=== PATIENT | female | born 1985 | race Caucasian/White ===

== ENCOUNTER 2018-02-08 20:00 | Inpatient (IN) ==
[2018-02-08] MEDS ORDERED: Ondansetron 4 MG/2 ML VIAL IVP PRN (20:26)
[2018-02-08] MEDS ORDERED: *HR* Nalbuphine 10 MG/ML AMPUL IVP PRN (20:26)
[2018-02-08] MEDS ORDERED: Naloxone 0.4 MG/ML INJ IVP PRN (20:26)
[2018-02-08] MEDS ORDERED: Famotidine 20 MG/2 ML VIAL IVP PRN (20:26)
[2018-02-08] MEDS ORDERED: Ringers Solution, Lactated 1,000 ML IVC SCH (20:30)
--- NOTE | 2018-02-08 20:53 | OB/GYN History & Physical ---
Date of Encounter: 02/09/18 Time of Encounter: 21:10 Assessment and Plan (1) 40 weeks gestation of Current visit: Yes Status: Acute (2) Elective induction of labor planned Current visit: Yes Status: Acute 1. Cervidil for induction this evening. 2. and maternal monitoring as per policy 3. Dr. Murry aware of admission (3) Tobacco abuse Current visit: Yes Status: Acute (4) Marijuana abuse Current visit: Yes Status: Acute (5) History of spontaneous Current visit: Yes Status: Acute History of Present Illness Chief complaint: Induction of labor HPI: Ms. Miller is a 32 year old female () who presents to [facility] labor and delivery for scheduled induction of labor at 40 weeks +1 days gestation. Patient has received care with Dr. Murry. Patient admits to past medical history of spontaneous 12 weeks in 2004 from unknown etiology. Current has been complicated by late arrival to care, as well as marijuana and tobacco use. 1. O+ blood type, Rubella IgG antibody and Varicella-zoster virus IgG antibody positive, GBS negative, all other serologies negative. 2. 3. Patient reports positive movement movement as per usual, she denies vaginal bleeding, discharge, or fluid leakage. Past Med Surg Social Fam HX - Past Medical History Attestation: Yes The following information was validated with the patient. Source: patient, nursing notes reviewed Medical history: no medical history, other Additional medical history: chronic back pain Psychiatric history: no psych history - Past Surgical History Surgical History: no surgical history, other Additional surgical history: WISDOM TEETH,IMPLANON PLACED JANUARY 2015 - Social History Smoking Status: Current every day smoker Packs per day: 1 Smokeless Tobacco Status: No Alcohol use: none Drug use: none - Family History Sister Age: 31 Living Status: Still Living Hx Family Cardiac Disorders: No Hx Family Respiratory Disorders: No Hx Family Cancer: No Hx Family GI Disorders: No Hx Family Genitourinary Disorders: No Hx Family Endocrine Disorder: No Hx Family Musculoskeletal Disorders: No Hx Family Neuromuscular Disorders: No Hx Family Neurologic Disorders: No Hx Family HEENT Disorders: No Hx Family Autoimmune Disorders: No Hx Family Reproductive Disorders: No Hx Family Psychosocial Disorders: No Hx Family Medical Disorders: No Obstetrical History - Pregnancies : 2 Para: 0 Term: 0 : 0 Ab's: 1 Livin - History/Complications History/Complications: Patient has a positive obstetrical history of spontaneous at greater than 20 weeks gestation in 2004 from unknown etiology. Medications and Allergies Ferrous Sulfate 325 mg PO DAILY 02/08/18 [History] Loratadine 10 mg PO DAILY 02/08/18 [History] Omeprazole 20 mg PO DAILY 02/08/18 [History] Formula Tablet 1 tab PO DAILY 02/08/18 [History] 3 Allergy/AdvReac Type Severity Reaction Status Date / Time Amoxicillin Allergy Hives Verified 02/08/18 20:48 aspirin [ASA] Allergy Hives Verified 07/27/15 23:26 Penicillins Allergy Hives Verified 07/27/15 23:13 Review of System OB All systems PM: reviewed and no additional remarkable complaints except as stated - Constitutional Constitutional ROS IM: no chills, no fever(s), no headache(s) - Eyes Eyes: bilateral: blurred vision (Patient admits to intermittent episodes of "lights flashing" in her visual perera. Patient states that these episodes have been mild in nature, less than 1 minute long, and spontaneously resolving.) - Nose, mouth, and throat Nose, mouth and throat: no disequilibrium, no dizziness, no headache(s), no vertigo - Cardiovascular Cardiovascular: leg edema, pedal edema, no chest pain, no dyspnea - Respiratory Respiratory: no dyspnea - Gastrointestinal Gastrointestinal: nausea, vomiting, no hematemesis, no hematochezia, no melena - Genitourinary Genitourinary: no hematuria - Muscloskeletal Musculoskeletal: other (Patient admits to bilateral rib pain which has been ongoing throughout . Patient states the pain is intermittent, and shifting from one side to the other, currently on the right side of her rib cage.) - Neurological Nerological: no abnormal gait, no disequilibrium, no dizziness, no headache(s), no lack of coordination Exam - Vital Signs Vital signs: Initial Vital Signs Temp Pulse Resp BP 98.0 F 94 16 113/74 02/08/18 20:33 02/08/18 20:33 02/08/18 20:33 02/08/18 20:33 - Constitutional Constitutional: well developed, well nourished, no acute distress, average body habitus - HEENT HEENT: EOMI, PERRL, Normocephaly, Mucus Membranes Moist - Lungs Respiratory exam: CTAB - Cardiovascular Cardiovascular exam: RRR, +S1, +S2 - Abdomen Abdomen: Present: bowel sounds normal, gravid, non tender. Absent: guarding noted, hepatomegaly, splenomegaly - Extremities Extremities exam: pedal edema (2+ pitting edema noted in bilateral lower extremities. Patient states this is been ongoing throughout ), warm Results Result Diagrams: 02/08/18 20:28 All other labs normal. - VTE Reasons for not Prescribing Prophylaxis: Treatment not Indicated - Low risk for VTE - Attending Attestation I examined this patient and my medical decision-making was reviewed with the Resident Physician. I agree with the documented findings, disposition and treatment plan as described except to the extent set forth below. Nagi Murry
[2018-02-08 21:07] LABS: Basophils % 0.3 %; Eosinophils # 0.1 K/mcL (0.0-0.6); Eosinophils % 1.4 %; Hematocrit 36.3 % (35.3-44.9); Hemoglobin 12.2 g/dL (11.5-15.4); Immature Granulocytes % 0.7 % (0-4); Lymphocytes % 28.6 %; Mean Corpuscular HGB Conc 33.6 g/dL (31.6-35.5); Mean Corpuscular Volume 89.2 fL (83.0-100.0); Mean Platelet Volume 10.8 fL (9.4-12.4); Monocytes # 0.7 K/mcL (0.0-1.3); Neutrophils # 6.4 K/mcL (1.6-8.9); Platelet Count 277 K/mcL (140-400); Red Blood Count 4.07 M/mcL (3.82-4.97); Red Cell Distribution Width 14.3 % (11.5-14.5)
[2018-02-08 23:48] LABS: Amphetamine Screen,Urine Negative ng/mL (Cutoff=1000); Barbiturate Screen,Urine Negative ng/mL (Cutoff=200); Benzodiazepines Screen,Urine Negative ng/mL (Cutoff=200); Cannabinoid Screen,Urine Positive ng/mL (Cutoff = 50); Cocaine Screen,Urine Negative ng/mL (Cutoff= 300); Opiate Screen,Urine Negative ng/mL (Cutoff=300); Phencyclidine Screen,Urine Negative ng/mL (Cutoff=25)
--- NOTE | 2018-02-09 08:41 | OB Labor Progress Note ---
Date of Encounter: 02/09/18 Time of Encounter: 08:39 Labor Progress Note - Subjective Subjective: Patient's feeling the contractions getting uncomfortable - Cervix Cervix: /-3 cervical removed fully catheter placed 40 mL balloon inflated - Heart Tones Heart Tones: heart tones 140s reactive - [place]: Contractions every 2 minutes - Plan Plan: Continue current care once Dennis catheter has fallen out patient and have an epidural we will artificially rupture it does not ruptured spontaneously plan is to anticipate vaginal delivery
--- NOTE | 2018-02-09 09:59 | Anesthesia Evaluation PreOp ---
Date of Encounter: 02/09/18 Time of Encounter: 09:56 - Past History Planned Operation: DEBBIE Cardiac History: Denies any Significant Hx Pulmonary History: Smoker, Pack/yr (14) HEAVY DUTY CUSTODIAN History: Other (L4/L5 herniated disc with intermittent LE parethesias R>L) Other Medical History: Denies Any Significant HX Anesthesia History: No Prior Anesthetic Complications (never had any procedure requiring GA or NA; denies family h/o GA complications) : Yes Alcohol Use: none Drug use: none (no illicit drug use in 3 years) Medications and Allergies Ferrous Sulfate 325 mg PO DAILY 02/08/18 [History] Loratadine 10 mg PO DAILY 02/08/18 [History] Omeprazole 20 mg PO DAILY 02/08/18 [History] Formula Tablet 1 tab PO DAILY 02/08/18 [History] 3 Allergy/AdvReac Type Severity Reaction Status Date / Time Amoxicillin Allergy Hives Verified 02/08/18 20:48 aspirin [ASA] Allergy Hives Verified 07/27/15 23:26 Penicillins Allergy Hives Verified 07/27/15 23:13 - Meds/Allergy Pre-op Review Medications Reviewed: Yes Allergies Reviewed: Yes Beta Blockers on Current Med List: No Anesthesia Results - Labs 02/08/18 20:28 Anesthesia Exam 98/62, HR 97 O2 Sat Height 1.5 m Weight 74.389 kg Vital Signs Temp Pulse Resp BP 98.0 F 94 16 113/74 02/08/18 20:33 02/08/18 20:33 02/08/18 20:33 02/08/18 20:33 NPO (# of Hours): solids > 8hrs Pain Scale: 10 Pain Scale Used: Numeric (1 - 10) - HEENT Pupil (Motor): Pupils equal Mallampati: I Teeth: Normal Oral Opening: Greater than 3 - HEAVY DUTY CUSTODIAN LOC: Oriented HEAVY DUTY CUSTODIAN Motor: Normal RUE, Normal LUE, Normal RLE, Normal LLE, Normal Face HEAVY DUTY CUSTODIAN Sensory: Normal: RUE, LUE, Face, Deficit: RLE, LLE - Cardiac Rhythm: Regular Murmur: None JVD: No Carotid Bruit: No - Pulmonary Breath Sounds: bilateral Clear Respiratory Effort: Symmetrical Anesthesia Assess/Plan ASA Score: 2 Modified Lei Scale for Level of Consciousness: Cooperative, oriented, and tranquil Anesthetic Plan: Regional Autologous Blood: No Monitoring Plan: Standard Monitors Recovery Plan: Other
[2018-02-09] MEDS ORDERED: *HR* FentaNYL (PF) 100 MCG/2 ML VIAL EP ONE (10:00)
[2018-02-09] MEDS ORDERED: Epidural Premix (fent/bupiv) 110 ML EP SCH (10:00)
[2018-02-09] MEDS ORDERED: Bupivacaine-MPF 0.25% 10 ML VIAL EP ONE (10:00)
[2018-02-09] MEDS ORDERED: Lidocaine -MPF 1% 5 ML AMPUL ONE (10:02)
[2018-02-09] MEDS ORDERED: Bupivacaine-MPF 0.25% 10 ML VIAL ONE (10:02)
[2018-02-09] MEDS ORDERED: *HR* FentaNYL (PF) 100 MCG/2 ML VIAL ONE ×2 (10:02→23:53)
[2018-02-09] MEDS ORDERED: miSOPROStol 25 MCG TABLET PO ONE (10:12)
--- NOTE | 2018-02-09 12:52 | Anesthesia Procedures ---
Date of Encounter: 02/09/18 Time of Encounter: 12:24 Procedures: Anesthesia - Epidural/Spinal Patient ID/Chart reviewed: Yes Patient examined: Yes OB Eval: Gestational age: 40 weeks 1 day OB Eval: : 2 OB Eval: Hx Para: 1 OB Eval: Contractions: Non-stressed pattern Consent Obtained: Yes Supplemental Oxygen: None/Room Air Site Prep: Aseptic Technique, Sterile prep and drape, Povidone-Iodine 1% Patient position: upright Local Anesthetic: Lidocaine 1% Amount of Local Anesthetic used: 3 Touhy Needle Gauge: 18 Touhy Needle Depth (cm): 3 Catheter Depth at Skin (cm): 8 Test Dose (1.5% Lido + Epi): Volume given (mls): 5 Test Dose Result: Negative Loading Dose: 0.25% Marcaine (mls): 5 Loading Dose: Fentanyl (mcg): 100 Loading Dose Administered: Thru Catheter Infusion Med: 0.125% Bupivacaine w/ 2 mcg/ml Fentanyl Catheter Secured in Place: Tegaderm, Tape Interspace Used: L3-L4 Loss of Resistance (SHANNA): Yes Blood: No CSF: No Paresthesia: No Procedure: successful on 1st attempt; patient tolerated procedure well; VSS Vitals + FHT's: please see Angeline ARMANDO's electronic records for VS entry
[2018-02-09] MEDS ORDERED: *HR* Phenylephrine 10 MG/ML VIAL ONE (12:56)
--- NOTE | 2018-02-09 13:11 | OB Labor Progress Note ---
Date of Encounter: 02/09/18 Time of Encounter: 13:07 Labor Progress Note - Subjective Subjective: Patient recently got epidural blood pressure dropped heart tones also dropped into the 60s ephedrine was given blood pressures better in terms back in the normal range. - Cervix Cervix: 4/80/-1 AROM clear fluid noted - Heart Tones Heart Tones: FSM placed FHT's 140's reactive decelerations have resolved - [place]: Contractions every 2-3 minutes - Plan Plan: Continue current care and anticipate vaginal delivery we will augment with Pitocin if needed
[2018-02-09] MEDS ORDERED: Oxytocin 20 units/ LR 1000 mL 20 UNIT/1,000 ML BAG IVC SCH (16:30)
--- NOTE | 2018-02-09 20:02 | OB Labor Progress Note ---
Date of Encounter: 02/09/18 Time of Encounter: 19:40 Labor Progress Note - Subjective Subjective: Patient still very comfortable not feeling her contractions with the epidural - Cervix Cervix: /-1 can still did not disengage the head - Heart Tones Heart Tones: heart tones 140s reactive - [place]: contractions even 2-3 min approx 200 [place] units - Plan Plan: continue current care if she does not make change within the next 2 hours will discuss a section with her
[2018-02-09] MEDS ORDERED: Acetaminophen 325 MG TABLET PO PRN (22:23)
--- NOTE | 2018-02-09 22:31 | OB Labor Progress Note ---
Date of Encounter: 02/09/18 Time of Encounter: 22:24 Labor Progress Note - Subjective Subjective: patient still comfortable - Cervix Cervix: 690/0 bloody show noted - Heart Tones Heart Tones: heart tones 160's reactive - [place]: Contractions every 2 minutes adequate - Plan Plan: We will give patient Tylenol by mouth plan is to anticipate vaginal delivery
[2018-02-09] MEDS ORDERED: Metoclopramide 10 MG/2 ML VIAL IVP ONE (23:40)
[2018-02-09] MEDS ORDERED: Clindamycin 900 MG/50 ML 900 MG/50 ML IV.SOLN IVPB ONE (23:46)
--- NOTE | 2018-02-09 23:48 | OB Labor Progress Note ---
Date of Encounter: 02/09/18 Time of Encounter: 23:47 Labor Progress Note - Subjective Subjective: Patient without complaints - Cervix Cervix: /0 - Heart Tones Heart Tones: Heart tones 170s loss of [id number] variability with variable decelerations noted. - [place]: contractions every 2 min - Plan Plan: Due to minimal cervical change and tachycardia with decelerations was set at this time a section would be called.
--- NOTE | 2018-02-09 23:51 | OB/GYN Procedure Note ---
Section - Preop diagnosis: other (Intrauterine at 40-1/7 weeks, arrest of descent, tachycardia) Post-op diagnosis: same Procedure: primary low transverse Surgeon: Kain Murry Quantitated Blood Loss: 500 Was there an speech assistant present: Yes Movie Machine Operator: Jb Shannon (OMS 3) Anesthesiologist: Rosie Martines Hazardous Waste Technician: Melecio Munoz Anesthesia Type: Epidural section complications: none Disposition: L&D Recovery Room - Infant (s) A Delivery Date: 02/10/18 Delivery Time: 00:24 Presentation: vertex Position: LARA Route of delivery: other (section) Gender: Male Viability: Viable Pounds: 7 Ounces: 0 Gram Weight: 3.18 kg at 1 minute: 8 at 5 minutes: 9 Shoulder Dystocia: not encountered Specimens collected: cord blood Placenta: spontaneous Cord: 3 umbilical vessels - Narrative Narrative: The patient is a 32-year-old 1 para 0 at 40-1/7 weeks who presented for induction of labor secondary to term . She had an unfavorable cervix but being term she was brought in Cervidil was placed which was removed approximately 12 hours later. At this point a Denins catheter was placed 30 mL and was inflated followed with Cytotec. Dennis catheter did fall out she was artificially ruptured when she was 4 cm clear fluid noted. Patient did have episodes of bradycardia secondary to her epidural did receive 2 doses of ephedrine 10 negative blood pressure back up and tones returned to normal patient did have episodes of loss of hivz-wp-hanc variability but remained stable patient arrested at approximately 4 cm from approximate 6 hours with some positional change and getting these contractions and a more regular patent she did change to 6 cm however heart tones went into the 170s and 80s with loss of uuoy-[id number] variability she started to run a low-grade temperature tolerable no was given the tones did not return to baseline after another hour and a half patient remained the same at 6 cm and tones continues to remain in the 170s 180s [place] this time a section would be call. Procedure: Patient was taken the operating room her epidural anesthesia was found adequate. She was placed in the dorsal supine position with a tilt prepped and draped in usual fashion. Timeout was then obtained. A Pfannenstiel incision was made with scalpel carried down through the underlying tissue to the fascia was identified. Fascia was nicked in midline extended laterally with Strong scissors. The superior and inferior edges of the fascia grasped tented up and dissected off the rectus muscles. These were in the midline parietal peritoneum was identified tented up and entered sharply. This was extended superiorly and inferiorly with Metzenbaum scissors. Bladder blade was inserted the vesicouterine peritoneum was identified tented up and entered sharply and extended laterally with Strong scissors. The bladder flap was created digitally. The lower uterine segment was incised with a scalpel extended laterally with digital manipulation. The infant was then brought out through the incision cord was clamped and cut then handed off to waiting pediatric team. Cord blood was collected followed by delivery of the placenta spontaneously. Three-vessel cord noted. The uterus was exteriorized cleaned of all clots and debris. The lower uterine segment was then closed using a 3-0 Vicryl by 2 layer closure in usual fashion. Good hemostasis was noted uterus was returned to the abdomen the gutters were cleaned of all clots and debris and copiously irrigated. The fascia was closed using a #1 stratafix in a running stitch and skin was closed using a 4-0 Vicryl in a subcuticular manner. All needles lap sponge counts were correct 3 she did receive preoperative antibiotics. Prineo dressing applied at the end of the case
[2018-02-09] MEDS ORDERED: Lidocaine -MPF 2% 5 ML VIAL ONE (23:53)
[2018-02-09] MEDS ORDERED: *HR* Morphine Sulfate/PF 10 MG/10 ML AMPUL ONE (23:55)
[2018-02-10] MEDS ORDERED: *HR* Oxytocin 10 UNIT/ML VIAL IM ONE (00:15)
[2018-02-10] MEDS ORDERED: Naloxone 0.4 MG/ML INJ IVP PRN ×2 (00:21→03:11)
[2018-02-10] MEDS ORDERED: Ondansetron 4 MG/2 ML VIAL IVP ONE (00:21)
[2018-02-10] MEDS ORDERED: *HR* Promethazine 25 MG/ML VIAL IVP PRN (00:21)
[2018-02-10] MEDS ORDERED: Acetaminophen IV 1,000 MG/100 ML INFUS..BTL IVPB ONE (00:41)
[2018-02-10] MEDS ORDERED: *HR* OxyCODONE Immed Rel 5 MG TABLET PO PRN (01:30)
[2018-02-10] MEDS: *HR* HYDROmorphone (PF) 1 MG/ML SYRINGE IVP PRN ×2 (01:41→02:42)
--- NOTE | 2018-02-10 01:48 | Anesthesia Evaluation Post Op ---
Date of Encounter: 02/10/18 Time of Encounter: 01:47 - Vital Signs Vital Signs: 94/59, HR 80, RR 18, 98.4F, 96% - Lungs Lungs: Clear Ascult./Percussion - Airway Airway: Non-obstructed - Cardiovascular Regular Rate - Mental Status Mental Status: Alert & Oriented, Answers Appropriately - Pain Pain Scale: 3 Pain Scale used: Poli (Faces) - Nausea Vomiting Nausea Vomiting: Not Present - Hydration Hydration: NPO, Dennis catheter - Discharge PostOp Status: Transfer Patient to floor
[2018-02-10] MEDS ORDERED: Metoclopramide 10 MG/2 ML VIAL IVP PRN (03:11)
[2018-02-10] MEDS ORDERED: Sennosides 8.6 MG TABLET PO PRN (03:11)
[2018-02-10] MEDS ORDERED: Ringers Solution, Lactated 1,000 ML IVC SCH (03:11)
[2018-02-10] MEDS ORDERED: *HR* HYDROmorphone (PF) 1 MG/ML SYRINGE IVP PRN (03:11)
[2018-02-10] MEDS ORDERED: Oxytocin 20 units/ LR 1000 mL 20 UNIT/1,000 ML BAG IVC SCH ×2 (03:11)
[2018-02-10] MEDS ORDERED: Simethicone 80 MG TAB.CHEW PO PRN (03:11)
[2018-02-10] MEDS ORDERED: Ondansetron 4 MG/2 ML VIAL IVP PRN (03:11)
[2018-02-10] MEDS: *HR* OxyCODONE/APAP 5/325 TABLET PO PRN ×2 (05:18→19:49)
[2018-02-10 06:04] LABS: Basophils % 0.2 %; Eosinophils % 0.1 %; Hematocrit 31.4 % (35.3-44.9); Immature Granulocytes % 0.7 % (0-4); Lymphocytes # 2.1 K/mcL (0.6-4.6); Mean Corpuscular HGB Conc 33.8 g/dL (31.6-35.5); Mean Corpuscular Hemoglobin 30.5 pg (28.0-33.3); Mean Corpuscular Volume 90.2 fL (83.0-100.0); Mean Platelet Volume 10.7 fL (9.4-12.4); Monocytes % 4.8 %; Platelet Count 209 K/mcL (140-400); Red Blood Count 3.48 M/mcL (3.82-4.97); Red Cell Distribution Width 14.3 % (11.5-14.5); Segmented Neutrophils % 84.2 %
[2018-02-10 06:05] LABS: Hemoglobin 10.6 g/dL (11.5-15.4)
[2018-02-10] MEDS ORDERED: NON-FORMULARY MEDICATION 1 EACH EACH (Prenatal Formula Tablet 1 TAB) PO SCH (09:00)
[2018-02-10] MEDS: *HR* OxyCODONE/APAP 10/325 TABLET PO PRN ×2 (09:14→15:02)
[2018-02-10] MEDS: Prenatal Vit/FA 1 EACH TABLET PO SCH (09:15)
[2018-02-10] MEDS: Ibuprofen 600 MG TABLET PO PRN ×2 (12:16→17:35)
[2018-02-11 05:49] LABS: Basophils # 0.1 K/mcL (0.0-0.2); Basophils % 0.3 %; Eosinophils # 0.2 K/mcL (0.0-0.6); Eosinophils % 1.3 %; Hematocrit 28.1 % (35.3-44.9); Hemoglobin 9.4 g/dL (11.5-15.4); Immature Granulocytes % 0.8 % (0-4); Lymphocytes # 2.7 K/mcL (0.6-4.6); Lymphocytes % 18.2 %; Mean Corpuscular HGB Conc 33.5 g/dL (31.6-35.5); Mean Corpuscular Hemoglobin 30.2 pg (28.0-33.3); Mean Corpuscular Volume 90.4 fL (83.0-100.0); Mean Platelet Volume 10.9 fL (9.4-12.4); Monocytes # 0.7 K/mcL (0.0-1.3); Monocytes % 4.8 %; Neutrophils # 10.9 K/mcL (1.6-8.9); Nucleated Red Blood Cells 0.1 /100 WBC (0); Platelet Count 201 K/mcL (140-400); Red Blood Count 3.11 M/mcL (3.82-4.97); Red Cell Distribution Width 14.2 % (11.5-14.5); Segmented Neutrophils % 74.6 %
[2018-02-11] MEDS: Prenatal Vit/FA 1 EACH TABLET PO SCH (09:07)
[2018-02-11] MEDS: Ibuprofen 600 MG TABLET PO PRN ×2 (09:07→19:58)
[2018-02-11] MEDS: *HR* OxyCODONE/APAP 10/325 TABLET PO PRN (09:10)
--- NOTE | 2018-02-11 17:46 | OB/GYN Progress Note ---
Date of Encounter: 02/11/18 Time of Encounter: 19:40 - Assessment and Plan (1) anemia Current Visit: Yes Status: Acute Will increase iron to BID (2) Status post section Current Visit: Yes Status: Acute Stable POD#1 Increase iron to BID Continue all other current management Anticipate discharge tomorrow. Subjective - Subjective Interval history: Pt states feels well, pain well managed on po pain medication, tolerates regular diet. Patient reports: appetite normal, voiding normally, pain well controlled, ambulating normally [place]: doing well Objective - Vital Signs Latest vital signs: Vital Signs Temp Pulse Resp BP Pulse Ox 02/11/18 09:22 97.8 F 80 18 113/74 100 02/10/18 19:50 97.5 F L 76 14 94/55 98 Intake and Output 02/11/18 02/11/18 02/11/18 07:59 15:59 23:59 Output Total 400 / 400 1550 / 1550 Balance -400 / -400 -1550 / -1550 Output: Urine 400 / 400 1550 / 1550 Other: # Urine Diapers 4 - Exam Lungs: bilateral: normal Chest: Normal S1, Normal S2 Abdomen: Present: normal appearance, soft Incision: Present: intact (dermabond) Uterus: Present: firm (U) - Labs Labs: Laboratory Results - last 24 hr 02/11/18 05:12 WBC 14.6 H RBC 3.11 L Hgb 9.4 L Hct 28.1 L MCV 90.4 MCH 30.2 MCHC 33.5 RDW 14.2 Plt Count 201 MPV 10.9 Immature Gran % 0.8 Seg Neutrophils % 74.6 Lymphocytes % 18.2 Monocytes % 4.8 Eosinophils % 1.3 Basophils % 0.3 Neutrophils # 10.9 H Lymphocytes # 2.7 Monocytes # 0.7 Eosinophils # 0.2 Basophils # 0.1 Nucleated RBCs/100 WBC 0.1 H
[2018-02-12] MEDS: Prenatal Vit/FA 1 EACH TABLET PO SCH (08:28)
[2018-02-12] MEDS: *HR* OxyCODONE/APAP 5/325 TABLET PO PRN (08:29)
--- NOTE | 2018-02-12 09:33 | Discharge Summary ---
Date of Encounter: 02/12/18 Time of Encounter: 09:29 - Discharge Diagnosis (1) anemia Priority: Secondary Status: Acute Comments: Patient to continue ferrous sulfate daily (2) Status post section Priority: Primary Status: Acute Comments: Continue postop/ care discharge home today follow up with Dr. Murry in 2 weeks for incision check - Discharge Medications Prescriptions: OxyCODONE/APAP 5/325 [Percocet 5/325 MG] 1 each PO Q4HR PRN 5 Days #30 tablet PRN Reason: Moderate pain 4-6 Ibuprofen [Motrin] 600 mg PO Q6HR PRN #60 tablet PRN Reason: Pain Home Medications: Ferrous Sulfate 325 mg PO DAILY 02/08/18 [History] Loratadine 10 mg PO DAILY 02/08/18 [History] Docusate [Colace] 100 mg PO BID capsule 02/12/18 [Rx] Ferrous Sulfate 325 mg PO BIDWM tablet 02/12/18 [Rx] Ibuprofen [Motrin] 600 mg PO Q6HR PRN #60 tablet 02/12/18 [Rx] OxyCODONE/APAP 5/325 [Percocet 5/325 MG] 1 each PO Q4HR PRN 5 Days #30 tablet [Rx] Vit/FA 1 each PO DAILY tablet 02/12/18 [Rx] Allergies/Adverse Reactions: 3 Allergy/AdvReac Type Severity Reaction Status Date / Time Amoxicillin Allergy Hives Verified 02/08/18 20:48 aspirin [ASA] Allergy Hives Verified 07/27/15 23:26 Penicillins Allergy Hives Verified 07/27/15 23:13 Data Procedures and tests throughout hospitalization: Laboratory Tests 02/08/18 02/08/18 02/10/18 20:26 20:28 05:38 WBC 10.3 21.4 H D RBC 4.07 3.48 L Hgb 12.2 10.6 L D Hct 36.3 31.4 L MCV 89.2 90.2 MCH 30.0 30.5 MCHC 33.6 33.8 RDW 14.3 14.3 Plt Count 277 209 MPV 10.8 10.7 Immature Gran % 0.7 0.7 Seg Neutrophils % 62.0 84.2 Lymphocytes % 28.6 10.0 Monocytes % 7.0 4.8 Eosinophils % 1.4 0.1 Basophils % 0.3 0.2 Neutrophils # 6.4 18.0 H Lymphocytes # 3.0 2.1 Monocytes # 0.7 1.0 Eosinophils # 0.1 0.0 Basophils # 0.0 0.0 Nucleated RBCs/100 WBC Urine Opiates Screen Negative Ur Barbiturates Screen Negative Ur Phencyclidine Scrn Negative Ur Amphetamines Screen Negative U Benzodiazepines Scrn Negative Urine Cocaine Screen Negative U Marijuana (THC) Screen Positive H Ur Drug Screen Interp See Below 02/11/18 05:12 WBC 14.6 H RBC 3.11 L Hgb 9.4 L Hct 28.1 L MCV 90.4 MCH 30.2 MCHC 33.5 RDW 14.2 Plt Count 201 MPV 10.9 Immature Gran % 0.8 Seg Neutrophils % 74.6 Lymphocytes % 18.2 Monocytes % 4.8 Eosinophils % 1.3 Basophils % 0.3 Neutrophils # 10.9 H Lymphocytes # 2.7 Monocytes # 0.7 Eosinophils # 0.2 Basophils # 0.1 Nucleated RBCs/100 WBC 0.1 H Urine Opiates Screen Ur Barbiturates Screen Ur Phencyclidine Scrn Ur Amphetamines Screen U Benzodiazepines Scrn Urine Cocaine Screen U Marijuana (THC) Screen Ur Drug Screen Interp Date of admission: 02/08/18 20:23 Primary care physician: PCP NONE Discharging clinician: America Khan Anticipated date of discharge: 02/12/18 - Patient Status Disposition: Home, Self-Care Condition: Good Functional capacity at discharge: independent ambulation - Discharge Instructions Follow Up With: NONE,PCP [Primary Care Provider] - Kain Murry DO [Partnered Physician] - - Diet and Activity Activity: increase activity as tolerated Diet: regular diet Hospital Course Procedures: oarrs report reviewed per DICKSON Infante Time Attestation: Total time spent providing and/or coordinating discharge services: - VTE Reasons for not Prescribing Prophylaxis: Treatment not Indicated - Low risk for VTE Documentation of Mechanical Device: Intermittent pneumatic compression device Exam - Constitutional Vitals: Temp Pulse Resp BP Pulse Ox 97.8 F 80 18 113/74 100 02/11/18 09:22 02/11/18 09:22 02/11/18 09:22 02/11/18 09:22 02/11/18 09:22 General appearance IM: A&O X 3, pleasant, answers questions appropriately - Respiratory Respiratory exam: Present: CTAB - Cardiovascular Cardiovascular exam IM: Present: RRR, +S1, +S2 - GI/Abdominal GI/Abdominal exam IM: normal bowel sounds - Uterine Tone: Firm Uterus Position: 2 Fingers Below Umbilicus, Midline - Extremities Exam Extremities exam IM: Present: full ROM, normal capillary refill, normal inspection - Neurological Exam Neurological exam: alert, oriented X3, reflexes normal
[2018-02-12] MEDS: Ibuprofen 600 MG TABLET PO PRN (10:23)
[2018-02-12 10:26] VITALS: BP 122/71
== END 2018-02-12 11:39 | disposition home or self-care (01) | DRG 540 ==
LOC: 1NENULAB 20:23 → 1NENUOBS 02-10 03:06
PROVIDERS: ADMIT Obstetrics & Gynecology; ATTEND Obstetrics & Gynecology